=== PATIENT | female | born 1980 | race African-American/Black ===

== ENCOUNTER 2024-05-09 11:57 | Emergency (ER) | payer MEDICAID ==
[~2024-05-09] VITALS: Ht 167.6 cm; Wt 90.7 kg
[2024-05-09 12:25] VITALS: TEMP 36.8
[2024-05-09 15:09] LABS: BASOPHILS % 0.2 % (0.0-2.0); EOSINOPHILS % 0.1 % (0.0-5.0); HEMATOCRIT. 44.2 % (36.0-48.0); HEMOGLOBIN. 14.6 g/dL (12.0-16.0); LYMPHOCYTES % 18.3 % (20.0-50.0); MEAN CORPUSCULAR HEMOGLOBIN 27.8 pg (28.0-32.0); MEAN CORPUSCULAR VOLUME 84.4 fL (81.0-99.0); MONOCYTES % 14.5 % (2.0-8.0); NEUTROPHILS % 66.9 % (40.0-76.0); PLATELET 276 x1000/uL (130-400); RED BLOOD CELL COUNT 5.24 mill/uL (4.2-5.4); RED CELL DISTRIBUTION WIDTH 14.4 % (11.6-14.6); WHITE BLOOD COUNT 10.8 x1000/uL (4.5-11.0)
[2024-05-09 15:19] LABS: CHLORIDE 101 mEq/L (98-107); POTASSIUM 3.8 mEq/L (3.5-5.1); SODIUM 136 mEq/L (136-145)
[2024-05-09 15:20] LABS: CARBON DIOXIDE 25 mEq/L (21-32)
[2024-05-09 15:21] LABS: CALCIUM 9.5 mg/dL (8.7-10.4)
[2024-05-09 15:22] LABS: HCG SCREEN NEGATIVE
[2024-05-09 15:25] LABS: CREATININE 1.5 mg/dL (0.6-1.0); GLUCOSE 140 mg/dL (70-105); UREA NITROGEN BLOOD 20 mg/dL (9-23)
[2024-05-09 15:27] LABS: ALANINE AMINOTRANSFERASE 16 IU/L (10-49); ALBUMIN 4.4 g/dL (3.2-4.8); ASPARTATE AMINOTRANSFERASE 27 IU/L (<34)
[2024-05-09 15:28] LABS: BILIRUBIN TOTAL 0.4 mg/dL (0.1-1.0); PROTEIN TOTAL 8.3 g/dL (6.0-8.3)
[2024-05-09 17:46] VITALS: PULSE 100; RESP 20; O2SAT 96
[2024-05-09] MEDS: ALBUTEROL (0.083%) 2.5MG/3ML NEB HHN STA (17:46)
[2024-05-09] MEDS: IPRATROPIUM BROMIDE (0.02%) 0.5MG/2.5ML NEB HHN STA (17:46)
[2024-05-09] MEDS: ONDANSETRON HCL 4MG/2ML INJ IV STA (18:00)
[2024-05-09] MEDS: KETOROLAC 30MG/ML VIAL IV STA (18:00)
[2024-05-09] MEDS: SODIUM CHLORIDE 0.9% 1,000 ML IV ONE (18:00)
[2024-05-09] MEDS: CEFTRIAXONE 1GM/50ML 50 ML IV ONE (18:35)
[2024-05-09] MEDS ORDERED: ALBU18HF2 IH (20:32)
[2024-05-09] MEDS ORDERED: AMOX-494 MT (20:32)
[2024-05-09] MEDS ORDERED: NAPR-681 MT (20:32)
[2024-05-09] MEDS ORDERED: BISM-77 MT (20:32)
[2024-05-09] MEDS ORDERED: ONDA-239 PO (20:32)
[2024-05-09] MEDS ORDERED: AZIT250T12 MT (20:32)
[2024-05-09 21:06] VITALS: BP 111/66; PULSE 94; RESP 18; O2SAT 99
== END 2024-05-09 21:06 | disposition home or self-care (01) ==
LOC: ER 11:57
DX: J18.9 Pneumonia, unspecified organism (principal); R11.2 Nausea with vomiting, unspecified; R19.7 Diarrhea, unspecified; I10 Essential (primary) hypertension
CPT/HCPCS: 80053; 84703; 83690; 85025; 36415; 71045; 94640; 93005; 96361; 96365; 96375; 99285; J0696; J1885; J2405; Z7610 ×4; J7030; A4606